=== PATIENT | female | born 1970 | race Caucasian/White ===

== ENCOUNTER 2021-10-11 15:59 | Emergency (ER) | payer MEDICAID ==
[~2021-10-11] VITALS: Ht 175.3 cm; Wt 181.4 kg
[2021-10-11 16:06] VITALS: BP_SYST 152
[2021-10-11] MEDS ORDERED: LevALBUTEROL HCL 1.25 MG/0.5 ML *CONC.* VIAL.NEB (XOPENEX CONC.) INH ONE (21:45)
[2021-10-11] MEDS ORDERED: ALBMDI INH (22:55)
[2021-10-11 23:10] VITALS: BP_SYST 145
== END 2021-10-11 23:12 | disposition home or self-care (01) ==
LOC: SED 15:59
DX: J45.901 Unspecified asthma with (acute) exacerbation (principal); F15.10 Other stimulant abuse, uncomplicated; I10 Essential (primary) hypertension; F17.210 Nicotine dependence, cigarettes, uncomplicated
CPT/HCPCS: 93005; 94640; 99283; J7612

== ENCOUNTER 2022-04-19 15:36 | Inpatient (IN) | payer MEDICAID ==
[~2022-04-19] VITALS: Ht 167.6 cm; Wt 162.4 kg
[~2022-04-19 15:36] MED LIST: ALBMDI INH
[2022-04-19 15:42] VITALS: BP_SYST 134
--- NOTE | 2022-04-19 15:48 | NUR ---
PT TRIAGED IN [facility] WITH EMT'S PRESENT, ER DR BETTENCOURT AWARE OF MSE NEEDS
[2022-04-19] MEDS ORDERED: NACL 0.9% 1,000 ML IV ONE ×2 (16:00→20:45)
--- NOTE | 2022-04-19 16:03 | NUR ---
ER DR. BETTENCOURT EXAMINING PT
[2022-04-19 17:00] LABS: BASOPHILS # (AUTO) 0.1 K/uL (0.0-0.2); BASOPHILS % (AUTO) 1.3 % (0.0-2.0); EOSINOPHILS # (AUTO) 0.2 K/uL (0.0-0.4); EOSINOPHILS % (AUTO) 1.7 % (0.0-4.0); HEMATOCRIT 39.7 % (36-48); HEMOGLOBIN 12.6 g/dL (12.0-16.0); LYMPHOCYTES # (AUTO) 1.3 K/uL (1.0-5.5); LYMPHOCYTES % (AUTO) 14.5 % (20.5-51.5); MEAN CORPUSCULAR HEMOGLOBIN 26 pg (27-31); MEAN CORPUSCULAR HGB CONC 32 % (32-36); MEAN CORPUSCULAR VOLUME 81 fL (79.0-98.0); MONOCYTES # (AUTO) 1.1 K/uL (0.0-1.0); NEUTROPHILS # (AUTO) 6.4 K/uL (1.8-7.7); NEUTROPHILS % (AUTO) 70.5 % (40.0-70.0); PLATELET COUNT (AUTO) 239 K/uL (130-430); RED BLOOD CELL COUNT(AUTO) 4.88 MIL/uL (4.2-6.2); RED CELL DISTRIBUTION WIDTH 16.9 % (9.0-15.0)
[2022-04-19 17:16] LABS: CALCIUM 8.9 mg/dL (8.4-11.0); CREATININE 0.82 mg/dL (0.55-1.30); POTASSIUM 3.5 mmol/L (3.5-5.1)
--- NOTE | 2022-04-19 17:17 | NUR ---
HIID swabbed, sent to lab.
[2022-04-19 17:22] LABS: ALBUMIN 3.1 g/dL (3.4-4.8); TOTAL BILIRUBIN 0.4 mg/dL (0.0-1.0)
--- NOTE | 2022-04-19 20:51 | NUR ---
Admit bed requested Patient will be admitted to care of . Admitted to TELEMETRY unit. Diagnosis UTI AND PALPITATIONS Inpatient (Yes or No) YES Observation (Yes or No) Orientation concerns or request close to nursing station (Yes or No) NO Covid Status - On vent or bipap NO Isolation requirements NO Needs a sitter NO From Home (Yes or if No enter name of facility) HOME/HOMELESS Requires Dialysis (Yes or No) NO Med Rec Completed (Yes of No) NO WILL ATTEMPT TO OBTAIN FROM PATIENT
[2022-04-19] MEDS ORDERED: AMLO5TAB4 PO (20:57)
[2022-04-19] MEDS ORDERED: FURO-149 PO (20:57)
[2022-04-19] MEDS ORDERED: ALBMDI INH (20:57)
[2022-04-19] MEDS ORDERED: INSULIN REGULAR, HUMAN 100 UNITS/ML, 10 ML VIAL (humuLIN R) SUBCUT PRN (21:30)
[2022-04-19] MEDS ORDERED: ACETAMINOPHEN 325 MG TABLET PO PRN (21:30)
[2022-04-19 21:32] LABS: BILIRUBIN,URINE NEGATIVE (NEGATIVE); BLOOD, URINE NEGATIVE (NEGATIVE); CLARITY/URINE SL CLOUDY (CLEAR); COLOR,URINE YELLOW (YELLOW); GLUCOSE,URINE NEGATIVE (NEGATIVE); KETONES,URINE NEGATIVE (NEGATIVE); LEUKOCYTE ESTERASE ,URINE NEGATIVE (NEGATIVE); NITRITE, URINE NEGATIVE (NEGATIVE); PH,URINE 5.5 (5.0-8.0); PROTEIN URINE NEGATIVE (NEGATIVE); UROBILINOGEN,URINE 0.2 (0.2-1.0)
[2022-04-19] MEDS: ATENOLOL 25 MG TABLET(TENORMIN) PO SCH (21:45)
[2022-04-19 23:18] VITALS: BP_SYST 117
[2022-04-20 00:13] VITALS: BP_SYST 116
[2022-04-20 04:00] VITALS: BP_SYST 123
[2022-04-20 05:17] LABS: BARBITURATE, URINE NEGATIVE (NEG <=200); BENZODIAZEPINE, URINE NEGATIVE (NEG <=150); CANNABINOID, URINE NEGATIVE (NEG <=50); COCAINE, URINE NEGATIVE (NEG <=150); METHAMPHETAMINES SCREEN,URINE NEGATIVE (NEG <=500); OPIATE, URINE NEGATIVE (NEG <=100); PHENCYCLIDINE SCREEN,URINE NEGATIVE (NEG <=25); UR TRICYCLIC ANTIDEPRESSANTS NEGATIVE (NEG <=300); URINE AMPHETAMINE NEGATIVE (NEG <=500); URINE METHADONE NEGATIVE (NEG <=200); URINE OXYCODONE SCREEN NEGATIVE (NEG <=100); URINE PROPOXYPHENE SCREEN NEGATIVE (NEG <=300)
--- NOTE | 2022-04-20 07:35 | NUR ---
OPEN NOTE Patient resting in bed A/Ox4. No pain noted, no shortness of breath no signs of distress noted. Patient has love draining yellow urine to gravity. LAC 20g, patent and not infiltrated. All needs met, safety precautions done, call light within reach. will continue to monitor.
[2022-04-20 08:07] VITALS: BP_SYST 118
[2022-04-20] MEDS: ATENOLOL 25 MG TABLET(TENORMIN) PO SCH (09:39)
[2022-04-20 12:10] VITALS: BP_SYST 125
--- NOTE | 2022-04-20 12:10 | NUR ---
Patient rounds Patient resting in bed, no pain, no shortness of breath, no signs of distress. Trinidad cath still attached and draining yellow urine to gravity. All needs met, call light within reach. Safety measures in place. Will continue to monitor.
--- NOTE | 2022-04-20 15:55 | NUR ---
Patient rounds Patient resting in bed, no pain, no shortness of breath, no signs of distress. Trinidad cath still attached and draining yellow urine to gravity. All needs met, call light within reach. Safety measures in place. Will continue to monitor. Addendum: 04/20/22 at 1557 by Gabriela Perez LVN Patient is refusing to ambulate due to fear of falling. Will continue to encourage.
[2022-04-20 16:00] VITALS: BP_SYST 112
--- NOTE | 2022-04-20 18:43 | NUR ---
CLOSING NOTE Patient resting in bed. No pain noted, no shortness of breath no signs of distress noted. Patient has love draining yellow urine to gravity. LAC 20g, patent and not infiltrated. All needs met, safety precautions done, call light within reach. Will endorse to nightshift nurse.
[2022-04-20 21:00] VITALS: BP_SYST 124
[2022-04-20] MEDS: ENOXAPARIN SODIUM 40 MG/0.4 ML SYRINGE SUBCUT SCH (21:28)
[2022-04-21] VITALS (7 sets, daily range): BP systolic 117–131
[2022-04-21] MEDS ORDERED: ALBUTEROL MDI INHALATION 8 GM INH INH PRN (05:15)
[2022-04-21] MEDS: ATENOLOL 25 MG TABLET(TENORMIN) PO SCH (09:38)
--- NOTE | 2022-04-21 12:51 | NUR ---
CONSULTATION PAGED/CALLED Reason for Consultation: [] TACHYCARDIA Person Who was Notified: [] DEREK Consulting Physician: [] DR CRUZ Patient Transition Specialist Specialty: [] CARDIO Ordering Physician: [] DR GARLAND
--- NOTE | 2022-04-21 14:17 | NUR ---
BRANNON CATHETER DISCONTINUED Brannon catheter was discontinued. No pain or distress noted to patient during procedure. Patient immediately got up after and used commode and voided about 100cc of yellow urine. Patient was instructed to call when needing to use commode for safety. Patient agreed. Will continue to monitor.
--- NOTE | 2022-04-21 15:51 | NUR ---
Patient rounds Patient resting in bed, no pain, no shortness of breath, no signs of distress. IV site to LAC is patent with no infilitration noted on SL. All needs met, call light within reach. Safety measures in place. Will continue to monitor.
--- NOTE | 2022-04-21 18:16 | NUR ---
CLOSING NOTE Patient resting in bed. No pain noted, no shortness of breath no signs of distress noted. Patient has Trinidad draining yellow urine to gravity. LAC 20g, patent and not infiltrated. All needs met, safety precautions done, call light within reach. Will endorse to nightshift nurse.
[2022-04-21] MEDS: ENOXAPARIN SODIUM 40 MG/0.4 ML SYRINGE SUBCUT SCH (20:30)
[2022-04-21] MEDS: ALBUTEROL SULFATE 0.083% 2.5 MG/3 ML VIAL.NEB INH PRN (21:43)
[2022-04-22 00:54] VITALS: BP_SYST 112
[2022-04-22 07:05] LABS: ALBUMIN 2.8 g/dL (3.4-4.8); CALCIUM 7.9 mg/dL (8.4-11.0); CREATININE 0.77 mg/dL (0.55-1.30); POTASSIUM 3.7 mmol/L (3.5-5.1); TOTAL BILIRUBIN 0.4 mg/dL (0.0-1.0)
[2022-04-22 07:19] LABS: BASOPHILS # (AUTO) 0.1 K/uL (0.0-0.2); BASOPHILS % (AUTO) 1.2 % (0.0-2.0); EOSINOPHILS # (AUTO) 0.2 K/uL (0.0-0.4); EOSINOPHILS % (AUTO) 3.6 % (0.0-4.0); HEMATOCRIT 36.9 % (36-48); LYMPHOCYTES # (AUTO) 1.3 K/uL (1.0-5.5); LYMPHOCYTES % (AUTO) 21.7 % (20.5-51.5); MEAN CORPUSCULAR HEMOGLOBIN 27 pg (27-31); MEAN CORPUSCULAR HGB CONC 33 % (32-36); MEAN CORPUSCULAR VOLUME 82 fL (79.0-98.0); MONOCYTES # (AUTO) 0.4 K/uL (0.0-1.0); NEUTROPHILS # (AUTO) 4.1 K/uL (1.8-7.7); NEUTROPHILS % (AUTO) 66.5 % (40.0-70.0); PLATELET COUNT (AUTO) 218 K/uL (130-430); RED BLOOD CELL COUNT(AUTO) 4.53 MIL/uL (4.2-6.2); RED CELL DISTRIBUTION WIDTH 16.9 % (9.0-15.0); WHITE BLOOD COUNT (AUTO) 6.1 K/uL (4.8-10.8)
[2022-04-22 08:00] VITALS: BP_SYST 128
[2022-04-22] MEDS: ATENOLOL 25 MG TABLET(TENORMIN) PO SCH (10:00)
--- NOTE | 2022-04-22 12:05 | NUR ---
[place] Worker IMAGING MANAGER met with pt. bedside. Pt. was pleasant and amenable to this interview. Pt. stated she has been homeless for the past 3 years. Pt has stayed in and out of shelters. Prior to being homeless, pt. stayed in an apt. with a boyfriend. Pt. 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 IMAGING MANAGER mentioned it is a good time to apply as a lot of businesses are hiring. Pt. has two children, Liane Mckee 13, and Kandy 11 and they both reside with their dad, Marquise Quan, , her emergency contact. Zev said she did not want [facility] to be notified she was in the hospital. IMAGING MANAGER asked pt. who she has as a support system. Pt. stated she has family on her mom and dads side, but she does not keep in touch with them. IMAGING MANAGER asked Ross why. Zev stated she left them to see if she could get a job with [employer]. IMAGING MANAGER asked if that was why she did not stay in touch with any family. Pt. could not answer. Pt does not have any support system. Pt shared that she has gone to [place] on a bus and has stayed out there enjoying the sunshine, enjoying their hospitals, gambling and going to their shelters. IMAGING MANAGER asked her about the money issue. Pt. stated she was able to get a discount ticket. IMAGING MANAGER asked pt. is she has ever felt suicidal. Pt. stated 5 days ago was the last time she felt suicidal. Pt. stated she did not want to live on the streets and she stated she motioned with her hands a gun and put it to her head. IMAGING MANAGER asked pt. if she has ever been Dx. with any mental health issues. Pt. stated about 5 years ago, she was diagnosed by a psychiatrist in [facility] as being Schizophrenic and had been taking Abilify but stopped 6 moths ago because it has become increasingly more difficult to obtain her medication. Pt. stated she would like to get back on her meds. IMAGING MANAGER asked pt. if she is diabetic and pt. replied she believes she is, but is not checking her glucose and is not taking medication. Pt. has a new cell phone, . IMAGING MANAGER called from the Rn. station to confirm this number was correct. IMAGING MANAGER completed a Homeless Waiver, a Discharge Planning Assessment and a Homeless Assessment. IMAGING MANAGER provided pt. with numerous resources including a homeless packet, hotline numbers, mental health and medical clinics. IMAGING MANAGER spoke to security and requested pants/shirt 4x. IMAGING MANAGER called and spoke to Rn. Fuller ext. [phone] to share with her the following, pt. may be diabetic and not using a glucometer or taking any type of medicine. Pt. last felt suicidal 5 days ago, but is not currently suicidal. Pt. was Dx. with Schizophrenia and was taking meds up to 6 months ago. but is no longer taking her Abilify. IMAGING MANAGER asked Rn. to ask Dr. Kennedy to review these concerns. IMAGING MANAGER will fill out a Full Service Project Application on pts. behalf.
[2022-04-22 20:15] VITALS: BP_SYST 148
[2022-04-22] MEDS: ENOXAPARIN SODIUM 40 MG/0.4 ML SYRINGE SUBCUT SCH (22:08)
[2022-04-23 01:03] VITALS: BP_SYST 111
[2022-04-23] MEDS: ATENOLOL 25 MG TABLET(TENORMIN) PO SCH (10:24)
[2022-04-23] MEDS: ALBUTEROL SULFATE 0.083% 2.5 MG/3 ML VIAL.NEB INH PRN (10:34)
[2022-04-23 11:37] VITALS: BP_SYST 131
--- NOTE | 2022-04-23 12:00 | NUR ---
BONE CRUSHER LYNETTE Montgomery responded to a request for social service support with discharge from Costume Director Laure. TRAIN OPERATIONS MANAGERBang Montgomery met with patient at bedside. Patient was awake, alert and oriented x4. TRAIN OPERATIONS MANAGER completed introductions, reason for contact and provided business card. Patient was open to contact. TRAIN OPERATIONS MANAGER addressed patient being ready for discharge and explored possible familial and senior care options. Patient provided number for Marquise, father of her 2 children, . She also shared a family friend named Katherine may be able to support her with housing but she was unable to provide contact information. TRAIN OPERATIONS MANAGER discussed senior care options as well. Patient requested for Marquise to be contacted. TRAIN OPERATIONS MANAGER provided patient with [phone] Interim Housing List, and requested patient to begin contacting shelters. TRAIN OPERATIONS MANAGER contacted Marquise, he stated he has not had contact with Katherine for 20+ years. He also stated "Ezio needs to be in a mental institution and please don't call me about her any more". TRAIN OPERATIONS MANAGER contacted the following shelters: - [facility] - [facility] - [facility] ([facility]) - [address] shared patient needs to make initial contact. Addendum: 04/23/22 at 1428 by Valentina OJEDA TRAIN OPERATIONS MANAGER met with patient to obtain an update on patient's ability to locate senior care. Patient stated she would like to be transported to [facility]. TRAIN OPERATIONS MANAGER acknowledged patient's request and inquired into her feelings of safety with this plan and again offered to contact additional shelters. Patient again requested to be transported to [facility]. In an effort to obtain final confirmation, TRAIN OPERATIONS MANAGER again asked patient if she wanted transportation to [facility] in [place] to which she stated yes. TRAIN OPERATIONS MANAGER consulted with assigned RN Mohan to inform him of plan for discharge and requested final discharge order and transportation support. TRAIN OPERATIONS MANAGER contacted Security to obtain clothing in size 4x, but it is unavailable at this time. TRAIN OPERATIONS MANAGER will continue to be available as needed.
--- NOTE | 2022-04-23 16:31 | NUR ---
UMBRELLA REPAIRER/DISCHARGE PLANNING STEM THRESHING MACHINE OPERATOR Valentina completed Homeless waiver with patient. She again stated she would like to be transported to [facility] [address] , [place] [address] STEM THRESHING MACHINE OPERATOR provided facesheet and address to Nursing It Director Frank for transportation request STEM THRESHING MACHINE OPERATOR provided completed homeless waiver to CORA Preston and informed him patient information had been provided to Frank for transport request.
[2022-04-23 17:12] VITALS: BP_SYST 126
[2022-04-23 18:40] VITALS: BP_SYST 128
== END 2022-04-23 22:09 | disposition home or self-care (01) | DRG 422 ==
LOC: SED 15:36 → STU 20:42
PROVIDERS: ADMIT Family Medicine; ATTEND Family Medicine
DX: E86.0 Dehydration (principal); N17.9 Acute kidney failure, unspecified; E44.1 Mild protein-calorie malnutrition; Z68.43 Body mass index [BMI] 50.0-59.9, adult; E11.9 Type 2 diabetes mellitus without complications; E66.01 Morbid (severe) obesity due to excess calories; F20.9 Schizophrenia, unspecified; Z20.822 Contact with and (suspected) exposure to COVID-19; I10 Essential (primary) hypertension; Z59.01 Sheltered homelessness; Z87.891 Personal history of nicotine dependence; Z79.4 Long term (current) use of insulin
CPT/HCPCS: 36415; 71045; 80053; 80307; 81003; 82962; 83036; 83605; 83880; 85025; 87040; 93005; 93306; 94640; 96360; 99285; G0378; J1650; J7613

== ENCOUNTER 2024-05-17 12:08 | Emergency (ER) | payer MEDICAID ==
[~2024-05-17] VITALS: Ht 167.6 cm; Wt 149.7 kg
[~2024-05-17 12:08] MED LIST changes: +AMLO5TAB4 PO; +FURO-149 PO
[2024-05-17 12:30] VITALS: BP_SYST 140; PULSE 88; RESP 18; TEMP 97.4; O2SAT 97
[2024-05-17 13:39] LABS: BASOPHILS # (AUTO) 0.1 K/uL (0.0-0.2); BASOPHILS % (AUTO) 0.7 % (0.0-2.0); EOSINOPHILS # (AUTO) 0.5 K/uL (0.0-0.4); EOSINOPHILS % (AUTO) 6.2 % (0.0-4.0); HEMATOCRIT 36.1 % (36-48); HEMOGLOBIN 11.2 g/dL (12.0-16.0); LYMPHOCYTES # (AUTO) 0.9 K/uL (1.0-5.5); LYMPHOCYTES % (AUTO) 11.3 % (20.5-51.5); MEAN CORPUSCULAR HEMOGLOBIN 25 pg (27-31); MEAN CORPUSCULAR HGB CONC 31 % (32-36); MEAN CORPUSCULAR VOLUME 81 fL (79.0-98.0); MONOCYTES # (AUTO) 0.7 K/uL (0.0-1.0); MONOCYTES % (AUTO) 8.4 % (1.7-9.3); NEUTROPHILS # (AUTO) 6.2 K/uL (1.8-7.7); NEUTROPHILS % (AUTO) 73.4 % (40.0-70.0); PLATELET COUNT (AUTO) 339 K/uL (130-430); RED BLOOD CELL COUNT(AUTO) 4.49 MIL/uL (4.2-6.2); RED CELL DISTRIBUTION WIDTH 16.1 % (9.0-15.0); WHITE BLOOD COUNT (AUTO) 8.4 K/uL (4.8-10.8)
[2024-05-17 13:56] LABS: CALCIUM 8.5 mg/dL (8.4-11.0); CREATININE 0.58 mg/dL (0.55-1.30)
[2024-05-17 13:59] LABS: POTASSIUM 2.6 mmol/L (3.5-5.1)
[2024-05-17] MEDS: POTASSIUM CHLORIDE 20 MEQ/PKT PACKET PO ONE (14:17)
[2024-05-17 14:31] LABS: INFLUENZA TYPE A Negative (NEGATIVE); INFLUENZA TYPE B NEGATIVE (NEGATIVE)
[2024-05-17] MEDS ORDERED: POTA-197 PO (15:15)
[2024-05-17 15:27] VITALS: BP_SYST 140; PULSE 88; RESP 18; TEMP 97.4; O2SAT 97
== END 2024-05-17 15:27 | disposition home or self-care (01) ==
LOC: SED 12:08
DX: B34.9 Viral infection, unspecified (principal); R05.9 Cough, unspecified; R11.2 Nausea with vomiting, unspecified; J45.909 Unspecified asthma, uncomplicated; E11.9 Type 2 diabetes mellitus without complications; I10 Essential (primary) hypertension; Z20.822 Contact with and (suspected) exposure to COVID-19
CPT/HCPCS: 36415; 80048; 85025; 99283

== ENCOUNTER 2024-05-18 19:05 | Inpatient (IN) | payer MEDICAID ==
[~2024-05-18] VITALS: Ht 167.6 cm; Wt 149.7 kg
[~2024-05-18 19:05] MED LIST changes: +POTA-197 PO
[2024-05-18 19:27] VITALS: BP_SYST 127; PULSE 109; RESP 20; TEMP 98; O2SAT 95
[2024-05-18 20:46] LABS: ALANINE AMINOTRANSFERASE 25 U/L (12-78); ALBUMIN 3.1 g/dL (3.4-4.8); ANION GAP 2 (5-15); ASPARTATE AMINOTRANSFERASE 24 U/L (10-37); CALCIUM 8.7 mg/dL (8.4-11.0); CARBON DIOXIDE 35 mmol/L (23-29); CHLORIDE 104 mmol/L (98-107); CREATININE 0.78 mg/dL (0.55-1.30); GFR AFRICAN AMERICAN 100 mL/min (>90); GLUCOSE 139 mg/dL (74-106); POTASSIUM 3.1 mmol/L (3.5-5.1); SODIUM SERUM 141 mmol/L (136-145); TOTAL BILIRUBIN 0.4 mg/dL (0.0-1.0); UREA NITROGEN, BLOOD 7 mg/dL (8-21)
[2024-05-18 20:53] LABS: BILIRUBIN,DIRECT 0.1 mg/dL (0.0-0.3)
[2024-05-18 20:54] LABS: GFR NON AFRICAN-AMERICAN 82 mL/min (>90)
[2024-05-18] MEDS ORDERED: NITROGLYCERIN 1 INCH (GM) OINT. ONE (21:43)
[2024-05-18] MEDS ORDERED: ONDANSETRON HCL 4 MG/2 ML VIAL IVP PRN (21:45)
[2024-05-18] MEDS ORDERED: DEXTROSE 50% JECT 50 ML DISP.SYRIN IVP PRN (21:45)
[2024-05-18] MEDS ORDERED: LORazepam 2 MG/ML VIAL IVP PRN (21:45)
[2024-05-18] MEDS ORDERED: INSULIN LISPRO SLIDING SCALE 100 UNITS/ML, 3 ML VIAL (humaLOG) SUBCUT PRN (21:45)
[2024-05-18] MEDS: NITROGLYCERIN 1 INCH (GM) OINT. TP ONE (21:48)
[2024-05-18 21:52] LABS: RED BLOOD CELL COUNT(AUTO) 4.37 MIL/uL (4.2-6.2); WHITE BLOOD COUNT (AUTO) 9.2 K/uL (4.8-10.8)
[2024-05-18 21:53] LABS: HEMATOCRIT 34.8 % (36-48); HEMOGLOBIN 11.1 g/dL (12.0-16.0); MEAN CORPUSCULAR HEMOGLOBIN 25 pg (27-31); MEAN CORPUSCULAR HGB CONC 32 % (32-36); MEAN CORPUSCULAR VOLUME 80 fL (79.0-98.0)
[2024-05-18 21:54] LABS: LYMPHOCYTES % (AUTO) 11.9 % (20.5-51.5); NEUTROPHILS % (AUTO) 71.5 % (40.0-70.0); PLATELET COUNT (AUTO) 346 K/uL (130-430); RED CELL DISTRIBUTION WIDTH 16.2 % (9.0-15.0)
[2024-05-18 21:55] LABS: BASOPHILS # (AUTO) 0.1 K/uL (0.0-0.2); BASOPHILS % (AUTO) 1.3 % (0.0-2.0); EOSINOPHILS # (AUTO) 0.7 K/uL (0.0-0.4); EOSINOPHILS % (AUTO) 7.9 % (0.0-4.0); LYMPHOCYTES # (AUTO) 1.1 K/uL (1.0-5.5); MONOCYTES # (AUTO) 0.7 K/uL (0.0-1.0); MONOCYTES % (AUTO) 7.4 % (1.7-9.3); NEUTROPHILS # (AUTO) 6.6 K/uL (1.8-7.7)
[2024-05-18] MEDS ORDERED: ZOLPIDEM TARTRATE 5 MG TABLET PO PRN (22:00)
[2024-05-18] MEDS: MORPHINE 4 MG INJ. 4 MG/ML VIAL IVP ONE (22:13)
[2024-05-18] MEDS: HEPARIN SODIUM,PORCINE 5,000 UNITS/ML VIAL SUBCUT SCH (22:15)
[2024-05-18] MEDS ORDERED: NITROGLYCERIN 0.4 MG TAB.SUBL SL PRN (22:15)
[2024-05-18] MEDS: POTASSIUM CHLORIDE 20 MEQ TABLET.ER PO ONE (22:34)
[2024-05-18 23:15] VITALS: BP_SYST 126; PULSE 99; RESP 18; TEMP 97.6
[2024-05-19] VITALS (8 sets, daily range): BP systolic 111–139; PULSE 98–103; RESP 14–20; TEMP 97.4–97.9; O2SAT 96–99
[2024-05-19] MEDS: ALBUTEROL SULFATE 0.083% 2.5 MG/3 ML VIAL.NEB INH PRN (01:10)
[2024-05-19] MEDS: IPRATROPIUM BROM 0.5 MG/2.5 ML VIAL.NEB (ATROVENT) INH PRN (01:11)
[2024-05-19 04:41] LABS: BASOPHILS # (AUTO) 0.1 K/uL (0.0-0.2); BASOPHILS % (AUTO) 0.9 % (0.0-2.0); EOSINOPHILS # (AUTO) 0.6 K/uL (0.0-0.4); EOSINOPHILS % (AUTO) 7.7 % (0.0-4.0); HEMATOCRIT 34.2 % (36-48); HEMOGLOBIN 10.7 g/dL (12.0-16.0); LYMPHOCYTES # (AUTO) 1.4 K/uL (1.0-5.5); LYMPHOCYTES % (AUTO) 17.8 % (20.5-51.5); MEAN CORPUSCULAR HEMOGLOBIN 25 pg (27-31); MEAN CORPUSCULAR HGB CONC 31 % (32-36); MEAN CORPUSCULAR VOLUME 80 fL (79.0-98.0); MONOCYTES # (AUTO) 0.6 K/uL (0.0-1.0); MONOCYTES % (AUTO) 7.4 % (1.7-9.3); NEUTROPHILS # (AUTO) 5.1 K/uL (1.8-7.7); NEUTROPHILS % (AUTO) 66.2 % (40.0-70.0); PLATELET COUNT (AUTO) 327 K/uL (130-430); RED BLOOD CELL COUNT(AUTO) 4.26 MIL/uL (4.2-6.2); RED CELL DISTRIBUTION WIDTH 15.5 % (9.0-15.0); WHITE BLOOD COUNT (AUTO) 7.6 K/uL (4.8-10.8)
[2024-05-19 05:58] LABS: CALCIUM 8.5 mg/dL (8.4-11.0); CREATININE 0.62 mg/dL (0.55-1.30); POTASSIUM 3.3 mmol/L (3.5-5.1); THYROID STIMULATING HORMONE 0.99 uIu/mL (0.36-3.74)
[2024-05-19] MEDS: ACETAMINOPHEN 325 MG TABLET PO PRN (06:14)
[2024-05-19] MEDS ORDERED: NOR10 PO (06:58)
[2024-05-19] MEDS: ASPIRIN 81 MG TAB.CHEW PO SCH (08:56)
[2024-05-19] MEDS: POTASSIUM CHLORIDE 20 MEQ TABLET.ER PO ONE (12:40)
[2024-05-19] MEDS: NICOTINE 7 MG/24 HR PATCH.TD24 TD ONE (13:45)
[2024-05-19] MEDS ORDERED: METO25TA3 PO (15:23)
[2024-05-19] MEDS ORDERED: METF-379 PO (15:23)
[2024-05-19] MEDS: NICOTINE 7 MG/24 HR PATCH.TD24 TD SCH (18:43)
[2024-05-19] MEDS ORDERED: ATORVASTATIN 20 MG TABLET PO SCH (21:00)
[2024-05-19] MEDS: ATORVASTATIN 20 MG TABLET PO SCH (21:27)
[2024-05-20 07:25] VITALS: BP_SYST 128; PULSE 90; RESP 20; TEMP 98; O2SAT 97
[2024-05-20] MEDS: METOPROLOL SUCCINATE 25 MG TAB.SR.24H (TOPROL XL) PO SCH (08:24)
== END 2024-05-20 08:48 | disposition home or self-care (01) | DRG 203 ==
LOC: SED 19:05 → STU 21:41
PROVIDERS: ADMIT Internal Medicine; ATTEND Internal Medicine
DX: R07.89 Other chest pain (principal); E44.1 Mild protein-calorie malnutrition; Z68.43 Body mass index [BMI] 50.0-59.9, adult; E11.9 Type 2 diabetes mellitus without complications; E87.6 Hypokalemia; I10 Essential (primary) hypertension; E66.9 Obesity, unspecified; Z79.84 Long term (current) use of oral hypoglycemic drugs; Z79.51 Long term (current) use of inhaled steroids; Z79.899 Other long term (current) drug therapy; Z88.5 Allergy status to narcotic agent
CPT/HCPCS: 36415; 71045; 80048; 80061; 80076; 82948; 83037; 83880; 84443; 84484; 85025; 85379; 93005; 93306; 94070; 94640; 94760; 99285; G0378; J1644; J2405